=== PATIENT | female | born 1945 | race Caucasian/White ===

== ENCOUNTER 2017-09-28 08:54 | Inpatient (IN) ==
[2017-09-28] MEDS ORDERED: Naloxone 0.4 MG/ML INJ IVP PRN (10:59)
--- NOTE | 2017-09-28 11:08 | Electrophysiology H & P ---
<Abdulaziz Humphreys Meggan - Last Filed: 09/28/17 12:13> Date of Encounter: 09/28/17 Time of Encounter: 11:00 Assessment and Plan (1) Atrial fibrillation Current Visit: Yes Status: Acute H/o atrial fibrillation s/p ablation in 2012 at [facility]. Reports possibly in afib for the last year. Recommended to start tikosyn. Previous testing: ECHO REPORT 06/2017 LVEF 30-35%. Normal LV chamber size and wall thickness. Global left ventricular systolic dysfunction. Indeterminate diastolic function. Mildly dilated right ventricle with normal function. Moderate to severely dilated left atrium. Severely dilated right atrium. Mild-moderate mitral regurgitation.Moderate-severe tricuspid regurgitation. Estimated RVSP is 39-44 mmHg. STRESS TEST 06/2017:Pharmacologic stress ECG is non-diagnostic for ischemia due submaximal HR. Gated EF = 49%. Perfusion imaging was negative for ischemia or infarct. Baseline EKG - atrial fibrillation, HR 98 bpm, QT/QTc 352/407, QRS 88. Check BMP for dose calculation. Missed dose of eliquis. Will need AIDE prior to DCCV if needed after 5th dose. Plan of care reviewed with patient and she agrees. Continue eliquis. Dr. Arguello will order tikosyn once labs reviewed. Qualifiers: Atrial fibrillation type: persistent Qualified Code(s): I48.1 - Persistent atrial fibrillation History of Present Illness Chief complaint: afib HPI: Ms. Mercado is a 72 year old female with past medical history of afib s/p ablation in 2012,HTN, and cardiomyopathy who presents as direct admit for tikosyn initiation. She reports no change in symptoms since she was seen in the cardiology office in August. She reports chronic intermittent chest discomfort that is unchanged. Denies sob, othopnea, PND, or edema. Denies palpitations. Reports one missed dose of eliquis last week. No other missed doses. Past Med Surg Social Fam HX - Past Medical History Medical history: arthritis, atrial fibrillation, cardiomyopathy, hyperlipidemia , hypertension Psychiatric history: depression - Past Surgical History Surgical History: cholecystectomy, other - Social History Smoking Status: Never smoker Smokeless Tobacco Status: No Alcohol use: none Drug use: none Medications and Allergies Aspirin [Lo-Dose Aspirin EC] 81 mg PO DAILY 12/22/16 [History] Diclofenac Potassium 50 mg PO DAILY 12/22/16 [History] Diltiazem [Cardizem] 180 mg PO DAILY 12/22/16 [History] Lovastatin [Mevacor] 20 mg PO HS 12/22/16 [History] Nitroglycerin [Nitrostat] 0.4 mg SL AD PRN 12/22/16 [History] Omeprazole 20 mg PO BID 12/22/16 [History] Venlafaxine [Effexor] 75 mg PO DAILY 12/22/16 [History] Furosemide [Lasix] 20 mg PO BID #14 tablet 06/13/17 [Rx] Metoprolol Tartrate 25 mg PO BID 06/13/17 [History] Apixaban [Eliquis] 5 mg PO BID 09/28/17 [History] Dofetilide [Dofetilide] 250 mcg PO DAILY 09/28/17 [History] 3 Allergy/AdvReac Type Severity Reaction Status Date / Time ampicillin Allergy Hives Verified 09/28/17 12:27 All Systems Review: The remainder of the systems were reviewed and are negative Physical Examination General: Conversant, No Apparent Distress HEENT: Atraumatic, Normocephaly, Mucus Membranes Moist Neck: No JVD, Normal carotid pulses Cardiac: Other (Irregularly irregular) Lungs: Normal Breath Sounds, No Wheeze, Rales, Rhonchi Neuro: Alert and responsive, No focal deficits noted Abdomen: Soft, Non-Tender Skin: No rashes noted on visualized skin Musculoskeletal: No Chest Wall Tenderness Extremities: No Clubbing, No Cyanosis, No Edema, Normal Pulses Results 09/28/17 10:58 09/28/17 10:58 - Imaging and Cardiology Echo: report reviewed - VTE Reasons for not Prescribing Prophylaxis: Not indicated-Anticoagulated or INR therapeutic <Eris Arguello - Last Filed: 09/28/17 13:29> Date of Encounter: 09/28/17 - Attending Attestation I have personally performed a face to face evaluation on this patient. I have reviewed and agree with the care plan. History and Exam by me shows: Admitted for [facility] admission. History of Present Illness HPI: Ms. Mercado is a 72 year old female All Systems Review: The remainder of the systems were reviewed and are negative Physical Examination Vital Signs, Last 4 Hours Temp Pulse Resp BP Pulse Ox 09/28/17 13:15 92 18 123/78 98 09/28/17 12:30 96 18 116/87 09/28/17 11:30 98 20 118/96 09/28/17 10:46 97.8 F 85 18 123/92 Results 09/28/17 10:58 09/28/17 10:58 Lab Results 09/28/17 09/28/17 10:58 10:58 WBC 7.5 Hgb 13.5 Hct 42.5 Plt Count 241 Sodium 136 Potassium 4.3 Chloride 104 Carbon Dioxide 27 BUN 13 Creatinine 0.77 Glucose 86 Calcium 9.0
[2017-09-28 11:33] LABS: Basophils % 0.5 %; Eosinophils # 0.3 K/mcL (0.0-0.6); Hematocrit 42.5 % (35.3-44.9); Hemoglobin 13.5 g/dL (11.5-15.4); Immature Granulocytes % 0.3 % (0-4); Lymphocytes # 2.3 K/mcL (0.6-4.6); Lymphocytes % 30.1 %; Mean Corpuscular HGB Conc 31.8 g/dL (31.6-35.5); Mean Corpuscular Hemoglobin 26.7 pg (28.0-33.3); Mean Platelet Volume 9.2 fL (9.4-12.4); Monocytes # 0.7 K/mcL (0.0-1.3); Monocytes % 8.9 %; Neutrophils # 4.2 K/mcL (1.6-8.9); Platelet Count 241 K/mcL (140-400); Red Blood Count 5.06 M/mcL (3.82-4.97); Red Cell Distribution Width 20.5 % (11.5-14.5); Segmented Neutrophils % 56.2 %
[2017-09-28 11:53] LABS: BUN/Creatinine Ratio 17 (6-26); Blood Urea Nitrogen 13 mg/dL (8-23); Carbon Dioxide 27 mEq/L (23-29); Chloride 104 mEq/L (98-107); Glucose 86 mg/dL (70-105); Osmolality,Calculated 281 (280-300); Potassium 4.3 mEq/L (3.5-5.1); Sodium 136 mEq/L (136-145); eGFR For African Americans > 60 (> 60); eGFR For Non-African Americans > 60 (> 60)
[2017-09-28] MEDS ORDERED: Nitroglycerin 0.4 MG TAB.SUBL SL PRN (13:28)
[2017-09-28] MEDS: Furosemide 20 MG TABLET PO SCH (21:14)
[2017-09-28] MEDS: Apixaban 5 MG TABLET PO SCH (21:14)
--- NOTE | 2017-09-29 07:17 | Electrocardiograph Report ---
[place] [address] Test Date: 2017-09-28 Pat Name: Simi Mercado Department: 109 Room: [facility] Gender: Structures Technician: TERRELL : 1945 Requested By: Abdulaziz Humphreys Order Number: [id number] Reading MD: Jhonatan Smith Measurements Intervals [place] Rate: 55 P: 71 MO: 166 QRS: 16 QRSD: 97 T: 53 QT: 448 QTc: 438 Interpretive Statements SINUS BRADYCARDIA WITH SINUS ARRHYTHMIA NONSPECIFIC ST & T-WAVE ABNORMALITY Electronically Signed On 09-29-2017 7:15:48 EDT by Jhonatan Smith
--- NOTE | 2017-09-29 08:37 | Electrophysiology ProgressNote ---
Date of Encounter: 09/29/17 Time of Encounter: 08:35 Assessment and Plan (1) Atrial fibrillation Current Visit: Yes Status: Acute H/o atrial fibrillation s/p ablation in 2012 at [facility]. Reports possibly in afib for the last year. Recommended to start tikosyn at recent out-patient visit. Previous cardiac testing: ECHO REPORT 06/2017 LVEF 30-35%. Normal LV chamber size and wall thickness. Global left ventricular systolic dysfunction. Indeterminate diastolic function. Mildly dilated right ventricle with normal function. Moderate to severely dilated left atrium. Severely dilated right atrium. Mild-moderate mitral regurgitation.Moderate-severe tricuspid regurgitation. Estimated RVSP is 39-44 mmHg. STRESS TEST 06/2017:Pharmacologic stress ECG is non-diagnostic for ischemia due submaximal HR. Gated EF = 49%. Perfusion imaging was negative for ischemia or infarct. Baseline EKG - atrial fibrillation, HR 98 bpm, QT/QTc 352/407, QRS 88. EKG after 1st dose- sinus bradycardia, HR 55 bpm, QT/QTc 448/438, qrs 97. Kidney function is normal. Converted to NSR-SB. Continue eliquis. Continue tikosyn. EKG results reviewed with Dr. Arguello. Qualifiers: Atrial fibrillation type: persistent Qualified Code(s): I48.1 - Persistent atrial fibrillation Discussion w patient/family: The assessment and plan as outlined above was discussed with the patient and/or family members who expressed understanding and agreement. All questions were answered. Thank you for involving us in the care of your patient. Please call with any questions. Subjective Principal diagnosis: atrial fibrillation Interval history: Reports she feels she is smothering sometimes when she has recurrent afib. Reports mild symptoms this morning for a few seconds after she converted to NSR. Denies chest pain. Objective Vital Signs, Last 4 Hours Temp Pulse Resp 09/29/17 08:00 98.1 F 09/29/17 05:00 70 18 General: Conversant, No Apparent Distress HEENT: Atraumatic, Normocephaly, Mucus Membranes Moist Neck: No JVD, Normal carotid pulses Cardiac: Reg Rate and Rhythm, Normal S1 and S2, No Murmur Lungs: Normal Breath Sounds, No Wheeze, Rales, Rhonchi Neuro: Alert and responsive, No focal deficits noted Abdomen: Soft, Non-Tender Skin: No rashes noted on visualized skin Musculoskeletal: No Chest Wall Tenderness Extremities: No Clubbing, No Cyanosis, No Edema, Normal Pulses Results 09/28/17 10:58 09/28/17 10:58 Lab Results 09/28/17 09/28/17 10:58 10:58 WBC 7.5 Hgb 13.5 Hct 42.5 Plt Count 241 Sodium 136 Potassium 4.3 Chloride 104 Carbon Dioxide 27 BUN 13 Creatinine 0.77 Glucose 86 Calcium 9.0 - Imaging and Cardiology Stress Test: report reviewed Echo: report reviewed - EKG Interpretation EKG results cardiology: personally reviewed - VTE Reasons for not Prescribing Prophylaxis: Not indicated-Anticoagulated or INR therapeutic Consult Discharge Plan - Plan Referrals: Fidel Nguyen, AUTOMOTIVE PRODUCT SPECIALIST [Primary Care Provider] -
[2017-09-29] MEDS ORDERED: Venlafaxine XR (24 HR) 150 MG CAP.ER.24H PO SCH (09:20)
[2017-09-29] MEDS: Aspirin Enteric Coated 81 MG Tablet PO SCH (09:21)
[2017-09-29] MEDS: Furosemide 20 MG TABLET PO SCH ×2 (09:21→17:34)
[2017-09-29] MEDS: Diltiazem CD (24hr) 180 MG CAPSULE PO SCH (09:21)
[2017-09-29] MEDS: Apixaban 5 MG TABLET PO SCH ×2 (09:21→21:41)
--- NOTE | 2017-09-29 16:32 | Electrocardiograph Report ---
[address] [place], [place] [address] Test Date: 2017-09-29 Pat Name: Simi Mercaod Department: 101 Room: 2N7 Gender: F Apartment Groundskeeper: : 1945 Requested By: Abdulaziz Humphreys Order Number: [id number] Reading MD: Evangelina Arguello Measurements Intervals [place] Rate: 60 P: 76 ND: 169 QRS: 13 QRSD: 96 T: 58 QT: 434 QTc: 435 Interpretive Statements SINUS RHYTHM WITH SINUS ARRHYTHMIA NONSPECIFIC ST & T-WAVE ABNORMALITY Electronically Signed On 09-29-2017 16:30:43 EDT by Evangelina Arguello
--- NOTE | 2017-09-29 16:33 | Electrocardiograph Report ---
[place] [address] Test Date: 2017-09-28 Pat Name: Simi Mercado Department: 109 Room: [facility] Gender: F Trailer Driver: : 1945 Requested By: Abdulaziz Humphreys Order Number: [id number] Reading MD: Evangelina Arguello Measurements Intervals [place] Rate: 98 P: ID: 0 QRS: 1 QRSD: 88 T: 83 QT: 352 QTc: 407 Interpretive Statements ATRIAL FIBRILLATION NONSPECIFIC ST & T-WAVE ABNORMALITY ABNORMAL RHYTHM ECG Electronically Signed On 09-29-2017 16:31:57 EDT by Evangelina Arguello
--- NOTE | 2017-09-30 02:52 | Event Note ---
<Sebastian Frances - Last Filed: 09/30/17 02:36> Date of Encounter: 09/30/17 Time of Encounter: 02:05 Rapid response was called for Ms Meracdo due to "VTach" witnessed on the monitor by the nurse. Patient was asymptomatic. Upon arrival, Patient was in irregular rate and irregular rhythm, Dr. Castillo ordered Amiodarone. Upon further review of patients EKG and monitor, QT prolongation was noted at 23:58 on 09/29/17. Review of monitor reading at 1:29 AM on 09/30/17 showed "torsades de pointes" pattern. Amiodarone was immediately stopped due to further QT prolongation concern, and Mg was given. Patient immediately went back into sinus rhythm. Dr. Castillo called Dr. Eris Arguello, [facility] ecommerce marketing specialist, to inform that the patient was in torsades. QT prolonging medications were stopped. <Olivia Castillo - Last Filed: 09/30/17 03:18> Date of Encounter: 09/30/17 Pt was found VT on monitoring by RN. Rapid respond was called. Saw VT on monitor. Initially want to try amiodarone but find rhythm shows some signs of torsades so amiodarone is on hold. Pt was given Mg 2g iv once and rhythm switch to NSR. Called Dr Arguello and was recommend hold Tikosyn and give Mg. Continue to monitor pt in tele. When I left the room, pt is awake, alert, move four limbs , no focal neuro deficit identified, and vitals stable with NSR . Order BMP and Mg level, will correct any electrolytes abnormalities. Transfer pt to for closer monitoring.
[2017-09-30 03:11] LABS: BUN/Creatinine Ratio 19 (6-26); Blood Urea Nitrogen 14 mg/dL (8-23); Calcium 8.8 mg/dL (8.6-10.3); Carbon Dioxide 22 mEq/L (23-29); Chloride 105 mEq/L (98-107); Glucose 130 mg/dL (70-105); Osmolality,Calculated 286 (280-300); Potassium 3.6 mEq/L (3.5-5.1); Sodium 137 mEq/L (136-145); eGFR For African Americans > 60 (> 60); eGFR For Non-African Americans > 60 (> 60)
[2017-09-30 05:14] LABS: BUN/Creatinine Ratio 18 (6-26); Blood Urea Nitrogen 13 mg/dL (8-23); Calcium 8.7 mg/dL (8.6-10.3); Carbon Dioxide 24 mEq/L (23-29); Chloride 105 mEq/L (98-107); Glucose 112 mg/dL (70-105); Magnesium 2.5 mg/dL (1.6-2.6); Osmolality,Calculated 283 (280-300); Potassium 3.9 mEq/L (3.5-5.1); Sodium 136 mEq/L (136-145); eGFR For African Americans > 60 (> 60); eGFR For Non-African Americans > 60 (> 60)
[2017-09-30] MEDS: Diltiazem CD (24hr) 180 MG CAPSULE PO SCH (08:58)
[2017-09-30] MEDS: Aspirin Enteric Coated 81 MG Tablet PO SCH (08:59)
[2017-09-30] MEDS: Furosemide 20 MG TABLET PO SCH ×2 (08:59→15:00)
[2017-09-30] MEDS: Apixaban 5 MG TABLET PO SCH ×2 (08:59→19:49)
--- NOTE | 2017-09-30 09:00 | Electrophysiology ProgressNote ---
Date of Encounter: 09/30/17 Time of Encounter: 08:00 Assessment and Plan (1) Atrial fibrillation Current Visit: Yes Status: Acute H/o atrial fibrillation s/p ablation in 2013 at [facility]. Reports possibly in afib for the last year. Recommended to start tikosyn at recent out-patient visit. Baseline EKG - atrial fibrillation, HR 98 bpm, QT/QTc 352/407, QRS 88. EKG after 1st dose- sinus bradycardia, HR 55 bpm, QT/QTc 448/438, QRS 97. EKG after second dose -NSR, QTC 435, EKG after 3rd dose- SR, HR 65 bpm, QT/QTc 572/584, QRS 93. Patient developed VT last night and became unconscious. Less than one minute CPR given and she converted to sinus bradycardia. She was given IV amiodarone bolus after the event. Potassium and magnesium were normal. Tikosyn was discontinued. Small runs NSVT seen through the night. Dr. Eris Arguello was notified of events and orders given. No complaints this morning. We will continue monitor for recurrent events. Serial EKG to monitor QTC. Remains in NSR. Continue toprol xl and cardizem CD. Continue eliquis for AC. Previous cardiac testing: ECHO REPORT 06/2017 LVEF 30-35%. Normal LV chamber size and wall thickness. Global left ventricular systolic dysfunction. Indeterminate diastolic function. Mildly dilated right ventricle with normal function. Moderate to severely dilated left atrium. Severely dilated right atrium. Mild-moderate mitral regurgitation.Moderate-severe tricuspid regurgitation. Estimated RVSP is 39-44 mmHg. STRESS TEST 06/2017:Pharmacologic stress ECG is non-diagnostic for ischemia due submaximal HR. Gated EF = 49%. Perfusion imaging was negative for ischemia or infarct. Qualifiers: Atrial fibrillation type: persistent Qualified Code(s): I48.1 - Persistent atrial fibrillation Discussion w patient/family: The assessment and plan as outlined above was discussed with the patient and/or family members who expressed understanding and agreement. All questions were answered. Thank you for involving us in the care of your patient. Please call with any questions. Subjective Principal diagnosis: atrial fibrillation Interval history: Patient developed wide complex tachycardia last night and code called. She converted to NSR with less than one min CPR, no defibrillation. She was given IV amiodarone per ACLS protocol. Tikosyn was discontinued. Small runs NSVT seen through the night. She denies chest pain or SOB. Reports she is feeling well this morning. Objective Vital Signs, Last 4 Hours Temp Pulse Resp BP Pulse Ox 09/30/17 07:04 98.0 F 58 18 140/86 98 General: Conversant, No Apparent Distress HEENT: Atraumatic, Normocephaly, Mucus Membranes Moist Neck: No JVD, Normal carotid pulses Cardiac: Reg Rate and Rhythm, Normal S1 and S2, No Murmur Lungs: Normal Breath Sounds, No Wheeze, Rales, Rhonchi Neuro: Alert and responsive, No focal deficits noted Abdomen: Soft, Non-Tender Skin: No rashes noted on visualized skin Musculoskeletal: No Chest Wall Tenderness Extremities: No Clubbing, No Cyanosis, No Edema, Normal Pulses Results 09/28/17 10:58 09/30/17 04:19 Lab Results 09/30/17 09/30/17 09/30/17 02:38 02:38 04:19 Sodium 137 136 Potassium 3.6 3.9 Chloride 105 105 Carbon Dioxide 22 L 24 BUN 14 13 Creatinine 0.75 0.73 Glucose 130 H 112 H Calcium 8.8 8.7 Magnesium 5.5 H 2.5 - Imaging and Cardiology Echo: report reviewed - EKG Interpretation EKG results cardiology: personally reviewed - VTE Reasons for not Prescribing Prophylaxis: Not indicated-Anticoagulated or INR therapeutic Consult Discharge Plan - Plan Referrals: Fidel Nguyen, HYDROELECTRIC COMPONENT MACHINIST [Primary Care Provider] -
[2017-09-30] MEDS ORDERED: *HR* Magnesium Sulfate 2 GM/50 ML PIGGYBACK IVPB ONE (12:41)
[2017-09-30] MEDS ORDERED: *HR* Amiodarone Premix 150 MG/100 ML BAG IVPB ONE (12:41)
--- NOTE | 2017-09-30 16:11 | Electrocardiograph Report ---
[address] [address] Test Date: 2017-09-29 Pat Name: Simi Mercado Department: 111 Room: 2N01 Gender: F Metaphysician: MALATHI : 1945 Requested By: Eris Arguello Order Number: [id number] Reading MD: Nisa Root Measurements Intervals [place] Rate: 65 P: 67 AK: 161 QRS: 25 QRSD: 93 T: 78 QT: 572 QTc: 584 Interpretive Statements SINUS RHYTHM WITH FREQUENT SUPRAVENTRICULAR PREMATURE COMPLEXES NONSPECIFIC ST & T-WAVE ABNORMALITY PROLONGED QT INTERVAL Electronically Signed On 09-30-2017 16:10:15 EDT by Nisa Root
[2017-10-01] MEDS: Apixaban 5 MG TABLET PO SCH ×2 (08:02→20:11)
[2017-10-01] MEDS: Furosemide 20 MG TABLET PO SCH ×2 (08:02→17:21)
[2017-10-01] MEDS: Diltiazem CD (24hr) 180 MG CAPSULE PO SCH (08:02)
[2017-10-01] MEDS: Aspirin Enteric Coated 81 MG Tablet PO SCH (08:02)
--- NOTE | 2017-10-01 10:59 | Electrophysiology ProgressNote ---
Date of Encounter: 10/01/17 Time of Encounter: 10:00 Assessment and Plan (1) Atrial fibrillation Current Visit: Yes Status: Acute H/o atrial fibrillation s/p ablation in 2012 at [facility]. Reports possibly in afib for the last year. Recommended to start tikosyn at recent out-patient visit. Unfortunatly QT prolonged after 3rd dose and she did develope torsades. Baseline EKG - atrial fibrillation, HR 98 bpm, QT/QTc 352/407, QRS 88. EKG after 1st dose- sinus bradycardia, HR 55 bpm, QT/QTc 448/438, QRS 97. EKG after second dose -NSR, QTC 435, EKG after 3rd dose- SR, HR 65 bpm, QT/QTc 572/584, QRS 93. EKG today after tikosyn discontinued. NSR, HR 64 bpm, QT/Qtc 432/442. Patient developed torsades 03/02/18 at 0230 and became unconscious. Less than one minute CPR given and she converted to sinus bradycardia. She was given IV amiodarone bolus after the event per code team. Potassium and magnesium were normal, replacements given to keep mag at 2.0 and potassium at 4.5. Tikosyn was discontinued. No recurrent VT in ast 24 hours. Serial EKG to monitor QTC. Discussed with Dr. Arguello yesterday and recommended to monitor until QTC back to baseline. Baseline 407. Today QTc 442. I will discuss timing of discharge with Dr. Arguello. Remains in NSR. Continue toprol xl and cardizem CD. Continue eliquis for AC. Previous cardiac testing: ECHO REPORT 06/2017 LVEF 30-35%. Normal LV chamber size and wall thickness. Global left ventricular systolic dysfunction. Indeterminate diastolic function. Mildly dilated right ventricle with normal function. Moderate to severely dilated left atrium. Severely dilated right atrium. Mild-moderate mitral regurgitation.Moderate-severe tricuspid regurgitation. Estimated RVSP is 39-44 mmHg. STRESS TEST 06/2017:Pharmacologic stress ECG is non-diagnostic for ischemia due submaximal HR. Gated EF = 49%. Perfusion imaging was negative for ischemia or infarct. Qualifiers: Atrial fibrillation type: persistent Qualified Code(s): I48.1 - Persistent atrial fibrillation Discussion w patient/family: The assessment and plan as outlined above was discussed with the patient and/or family members who expressed understanding and agreement. All questions were answered. Thank you for involving us in the care of your patient. Please call with any questions. Subjective Principal diagnosis: atrial fibrillation Interval history: No new events overnight. Denies chest pain or palpitations. Remains in NSR. Objective Vital Signs, Last 4 Hours Temp Pulse Resp BP Pulse Ox 10/01/17 08:00 97.9 F 65 20 139/85 96 General: Conversant, No Apparent Distress HEENT: Atraumatic, Normocephaly, Mucus Membranes Moist Neck: No JVD, Normal carotid pulses Cardiac: Reg Rate and Rhythm, Normal S1 and S2, No Murmur Lungs: Normal Breath Sounds, No Wheeze, Rales, Rhonchi Neuro: Alert and responsive, No focal deficits noted Abdomen: Soft, Non-Tender Skin: No rashes noted on visualized skin Musculoskeletal: No Chest Wall Tenderness Extremities: No Clubbing, No Cyanosis, No Edema, Normal Pulses Results 09/28/17 10:58 09/30/17 04:19 - EKG Interpretation EKG results cardiology: personally reviewed - VTE Reasons for not Prescribing Prophylaxis: Not indicated-Anticoagulated or INR therapeutic Consult Discharge Plan - Plan Referrals: Fidel Nguyen, ACETYLENE PLANT OPERATOR [Primary Care Provider] -
--- NOTE | 2017-10-01 15:49 | Electrocardiograph Report ---
[address] [place], [place] [address] Test Date: 2017-09-30 Pat Name: Simi Mercado Department: 110 Room: 2N01 Gender: Cloth Finishing Range Operator Chief: : 1945 Requested By: Abdulaziz Humphreys Order Number: [id number] Reading MD: Eris Arguello Measurements Intervals [place] Rate: 65 P: 34 [place]: 144 QRS: 35 QRSD: 102 T: 74 QT: 570 QTc: 582 Interpretive Statements SINUS RHYTHM WITH MARKED SINUS ARRHYTHMIA POSSIBLE ANTERIOR MYOCARDIAL INFARCTION, OF INDETERMINATE AGE Prolonged QT Electronically Signed On 10-01-2017 15:47:17 EDT by Eris Arguello
[2017-10-02] MEDS: Diltiazem CD (24hr) 180 MG CAPSULE PO SCH (08:36)
[2017-10-02] MEDS: Aspirin Enteric Coated 81 MG Tablet PO SCH (08:36)
[2017-10-02] MEDS: Furosemide 20 MG TABLET PO SCH (08:36)
[2017-10-02] MEDS: Apixaban 5 MG TABLET PO SCH (08:37)
--- NOTE | 2017-10-02 10:27 | Discharge Summary ---
Orders not resulted at time of discharge: Pending orders 10/02/17 08:09 EKG [ECG 12 lead ECG] [ECG] Routine Date of Encounter: 10/02/17 Time of Encounter: 10:00 - Discharge Diagnosis (1) Atrial fibrillation Priority: Primary Status: Chronic Qualifiers: Atrial fibrillation type: paroxysmal Qualified Code(s): I48.0 - Paroxysmal atrial fibrillation - Hospital Course Hospital course: Ms. Mercado is a 72 year old female H/o atrial fibrillation s/p ablation in 2012 at [facility]. Reports recurrent afib over the last year. She presented for tikosyn administration. She converted to NSR after the first dose. Unfortunately QT prolonged after 3rd dose to 584. She did develop torsades 03/02 at 0230 and became unconscious. Less than one minute CPR given and she converted to sinus bradycardia. She denies chest pain or SOB after the event. Reports she is feeling well. Potassium and magnesium were normal, replacements given to keep mag at 2.0 and potassium at 4.5. Tikosyn was discontinued. No recurrent events in the last 48 hours. QTc returned to normal. She remains in NSR. She will continue toprol and cardizem. She is on eliquis for AC. Baseline EKG - atrial fibrillation, HR 98 bpm, QT/QTc 352/407, QRS 88. EKG after 1st dose- sinus bradycardia, HR 55 bpm, QT/QTc 448/438, QRS 97. EKG after second dose -NSR, QTC 435, EKG after 3rd dose- SR, HR 65 bpm, QT/QTc 572/584, QRS 93. EKG 10/01/17 after tikosyn discontinued. NSR, HR 64 bpm, QT/Qtc 432/442. EKG 10/02/17, NSR HR 74 bpm, Qt/QTc 419/446. - Time Spent with Patient Total time spent providing and/or coordinating discharge services: 1hr Greater than 30 minutes (d/c summary, med rec. d/c teaching.) - Discharge Medications Home Medications: Aspirin [Lo-Dose Aspirin EC] 81 mg PO DAILY 12/22/16 [History] Diclofenac Potassium 50 mg PO DAILY 12/22/16 [History] Lovastatin [Mevacor] 20 mg PO HS 12/22/16 [History] Nitroglycerin [Nitrostat] 0.4 mg SL AD PRN 12/22/16 [History] Omeprazole 20 mg PO BID 12/22/16 [History] Furosemide [Lasix] 20 mg PO BID #14 tablet 06/13/17 [Rx] Metoprolol Tartrate 25 mg PO BID 06/13/17 [History] Apixaban [Eliquis] 5 mg PO BID 09/28/17 [History] Diltiazem CD (24hr) [Cardizem CD] 180 mg PO DAILY 09/28/17 [History] Venlafaxine XR (24 HR) [Effexor Xr] 150 mg PO DAILY 09/29/17 [History] Allergies/Adverse Reactions: 3 Allergy/AdvReac Type Severity Reaction Status Date / Time ampicillin Allergy Hives Verified 09/28/17 12:27 Date of admission: 09/28/17 08:54 Primary care physician: Fidel Nguyen CNP Consults: 09/28/17 12:31 Consult to Insights Analyst [CONS] Routine Reason for SW Consult: DPOA and living will Discharging clinician: Abdulaziz Humphreys Anticipated date of discharge: 10/02/17 Physical Examination Vital Signs, Last 4 Hours Temp Pulse Resp BP Pulse Ox 10/02/17 08:21 98.0 F 71 19 156/80 97 General: Conversant, No Apparent Distress HEENT: Atraumatic, Normocephaly, Mucus Membranes Moist Neck: No JVD, Normal carotid pulses Cardiac: Reg Rate and Rhythm, Normal S1 and S2, No Murmur Lungs: Normal Breath Sounds, No Wheeze, Rales, Rhonchi Neuro: Alert and responsive, No focal deficits noted Abdomen: Soft, Non-Tender Skin: No rashes noted on visualized skin Musculoskeletal: No Chest Wall Tenderness Extremities: No Clubbing, No Cyanosis, No Edema, Normal Pulses - Patient Status Disposition: Home, Self-Care Condition: Good Overall status at discharge: patient is back to baseline - Discharge Instructions Follow Up With: Fidel gNuyen CNP [Primary Care Provider] - 10/09/17 10:15 am - Diet and Activity Activity: increase activity as tolerated Diet: advance to your usual diet - VTE Reasons for not Prescribing Prophylaxis: Not indicated-Anticoagulated or INR therapeutic
[2017-10-02 11:01] VITALS: BP 135/92
--- NOTE | 2017-10-02 23:10 | Electrocardiograph Report ---
[address] [address] Test Date: 2017-10-01 Pat Name: Simi Mercado Department: 110 Room: 2N01 Gender: F Armed Security Professional: LEVY : 1945 Requested By: Eris Arguello Order Number: [id number] Reading MD: Evangelina Arguello Measurements Intervals [place] Rate: 67 P: 66 AL: 164 QRS: 4 QRSD: 96 T: 77 QT: 459 QTc: 474 Interpretive Statements SINUS RHYTHM WITH OCCASIONAL SUPRAVENTRICULAR PREMATURE COMPLEXES MODERATE ST DEPRESSION PROLONGED QT INTERVAL Electronically Signed On 10-02-2017 23:09:05 EDT by Evangelina Arguello
--- NOTE | 2017-10-02 23:11 | Electrocardiograph Report ---
[address] [address] Test Date: 2017-10-01 Pat Name: Simi Mercado Department: 110 Room: 2N01 Gender: Substation Operator Chief: LEVY : 1945 Requested By: Abdulaziz Humphreys Order Number: [id number] Reading MD: Evangelina Arguello Measurements Intervals [place] Rate: 64 P: 65 ND: 163 QRS: 1 QRSD: 89 T: 71 QT: 432 QTc: 442 Interpretive Statements SINUS RHYTHM WITH MARKED SINUS ARRHYTHMIA NONSPECIFIC ST & T-WAVE ABNORMALITY Electronically Signed On 10-02-2017 23:09:17 EDT by Evangelina Arguello
--- NOTE | 2017-10-05 14:45 | Electrocardiograph Report ---
[address] [address] Test Date: 2017-10-02 Pat Name: Simi Mercado Department: 110 Room: 2N01 Gender: F Harp Maker: LEVY : 1945 Requested By: Eris Arguello Order Number: [id number] Reading MD: Eris Arguello Measurements Intervals [place] Rate: 74 P: 74 PA: 155 QRS: 14 QRSD: 93 T: 73 QT: 419 QTc: 446 Interpretive Statements SINUS RHYTHM WITH OCCASIONAL SUPRAVENTRICULAR PREMATURE COMPLEXES NONSPECIFIC ST & T-WAVE ABNORMALITY Electronically Signed On 10-05-2017 14:44:03 EDT by Eris Arguello
== END 2017-10-02 11:57 | disposition home or self-care (01) | DRG 310 ==
LOC: 2NENU 08:54 → ICNU 09:56 → 2NENU 09-29 15:46 → 2NNU 09-30 02:34
PROVIDERS: ADMIT Internal Medicine Clinical Cardiac Electrophysiology; ATTEND Internal Medicine Clinical Cardiac Electrophysiology